=== PATIENT | female | born 1995 | race Caucasian/White ===

== ENCOUNTER 2018-11-22 11:19 | Emergency (ER) | payer MEDICAID ==
[~2018-11-22] VITALS: Ht 154.9 cm; Wt 62.6 kg
--- NOTE | 2018-11-22 11:40 | NUR ---
C/O ABD PAIN AND CRAMPING x 3 DAYS. PATIENT CRYING AND MOANING DUE TO PAIN. AA/OX4, BREATHING EVEN AND UNLABORED, NO SOB NOTED. NEEDS ATTENDED. PARTNER AT BEDSIDE. ATTACHED TO THE MONITOR AND CHANGED INTO GOWN.
[2018-11-22 11:56] LABS: BASOPHILS # (AUTO) 0.1 /CMM (0.0-0.2); BASOPHILS % (AUTO) 0.6 % (0.0-2.0); EOSINOPHILS % (AUTO) 4.2 % (0.0-6.0); HEMATOCRIT 34 % (33-45); HEMOGLOBIN 11.4 g/dL (11.5-14.8); LYMPHOCYTES # (AUTO) 2.5 /CMM (0.8-4.8); LYMPHOCYTES % (AUTO) 25.8 % (20.0-44.0); MEAN CORPUSCULAR HGB CONC 34 g/dl (31.0-36.0); MEAN CORPUSCULAR VOLUME 86 fL (82-100); MONOCYTES # (AUTO) 0.7 /CMM (0.1-1.30); NEUTROPHILS # (AUTO) 5.9 /CMM (1.8-8.9); NEUTROPHILS % (AUTO) 62.4 % (43.0-81.0); PLATELET COUNT (AUTO) 333 /CMM (150-450); RED BLOOD CELL COUNT(AUTO) 3.89 MIL/uL (4.0-5.2); WHITE BLOOD COUNT (AUTO) 9.5 K/uL (4.3-11.0)
[2018-11-22 12:04] LABS: CALCIUM, SERUM 8.2 mg/dL (8.5-10.1); CREATININE 0.7 mg/dL (0.6-1.3); POTASSIUM 4.4 mmol/L (3.5-5.1)
[2018-11-22] MEDS ORDERED: ACETAMINOPHEN ES 500 MG TABLET ONE (12:09)
[2018-11-22 12:14] LABS: ALBUMIN 3.4 g/dL (3.4-5.0); BILIRUBIN,DIRECT 0.1 mg/dL (0.0-0.2); BILIRUBIN,TOTAL 0.2 mg/dL (0.2-1.0); TOTAL PROTEIN, SERUM 7.1 g/dL (6.4-8.2)
[2018-11-22] MEDS ORDERED: TRAMADOL HCL 50 MG TABLET ONE (12:22)
[2018-11-22] MEDS ORDERED: ACETAMINOPHEN 325 MG TABLET PO ONE (12:30)
[2018-11-22] MEDS ORDERED: TRAMADOL HCL 50 MG TABLET PO ONE (12:30)
--- NOTE | 2018-11-22 13:00 | NUR ---
PATIENT'S BOYFRIEND ACCUSING AN EMT THAT, "THE EMT WAS LOOKING AT MY GIRLFRIEND'S BOOBS" HE STATED HIS GF WAS CHANGING. EMT DENIES ACCUSATION. CHARGE NURSE AWARE. Addendum: 11/22/18 at 1320 by ROALCANCES ADDENDUM: OVERHEARD PATIENT STATING TO BOYFRIEND TO NOT MAKE A SCENE. [facility]TAIN REMAINS CLOSED AT [facility].
--- NOTE | 2018-11-22 13:45 | NUR ---
PATIENT IN STABLE CONDITION, PAIN IMPROVED, IV removed. Catheter intact and site benign. Pressure and 4x4 applied to site. No bleeding noted. Patient discharged to home in stable condition. Written and verbal after care instructions given. Patient verbalizes understanding of instruction.
[2018-11-22 14:00] VITALS: BP 127/81
== END 2018-11-22 14:00 | disposition home or self-care (01) ==
LOC: ER 11:19
DX: O26.891 Other specified pregnancy related conditions, first trimester (principal); Z3A.09 9 weeks gestation of pregnancy
CPT/HCPCS: 36415; 76805-TC; 80048-TC; 80076-TC; 84702-TC; 85025-TC